=== PATIENT | male | born 1940 | race Caucasian/White ===

== ENCOUNTER → 2017-02-28 | Day surgery (SDC) | payer MEDICARE ==
[~2017-02-28] MED LIST: 0.9% Sodium Chloride 1,000 ML IV PRN; ASPI-973 PO; ASPI81TA3 PO; BUSP15 PO; DOCU100T7 PO; ESCI10TA3 PO; ESCI20TA PO; FLONASE; FOL1 PO; FOLI1TAB18 PO; FURO20TA PO; KRIL500C PO; LIP40 PO; LISI-567 PO; LOPRESSOR25 MG PO; MONT10TA20 PO; MULT-1018 PO; OMEP20CA11 PO; OMEP20TA86 PO; POTA10TA23 PO; RANI150T11 PO; Sodium Chloride LOK Flush 10 mL Syringe IV PRN; TAM4 PO; TAMS0.4C98 PO; ULTRAM50 MG PO; [UNRECOGNIZED DRUG - CODE] PO; fentaNYL-PF 50 mCg/mL 2 mL Inj IVPUSH PRN
== END | disposition home or self-care (01) ==
LOC: END 00:37
PROVIDERS: ATTEND Internal Medicine Gastroenterology
DX: K21.9 Gastro-esophageal reflux disease without esophagitis (principal); Z53.8 Procedure and treatment not carried out for other reasons